=== PATIENT | female | born 1960 | race Caucasian/White ===

== ENCOUNTER 2018-04-23 14:50 | Emergency (ER) | payer OTHER ==
[~2018-04-23] VITALS: Ht 160 cm; Wt 129.3 kg
[2018-04-23 15:27] LABS: HEMATOCRIT 22.7 % (37.0-47.0); HEMOGLOBIN 7.1 gm/dL (12.0-15.0); MCH 20.6 pg (26.0-34.0); MCHC 31.3 g/dL (28.0-37.0); MCV 65.9 fL (80.0-100.0); PLATELET COUNT 528 thou/uL (150-400); RBC 3.44 mil/uL (4.20-5.00); RDW 19.5 % (10.5-14.5); WBC 8.5 thou/uL (4.0-11.0)
[2018-04-23 15:35] LABS: CALCIUM 9.3 mg/dL (8.5-10.1); CREATININE 0.8 mg/dL (0.6-1.0); POTASSIUM 3.7 mmol/L (3.5-5.1)
[2018-04-23 16:13] LABS: PLATELET ESTIMATE INCREASED
[2018-04-23 16:14] LABS: ANISOCYTOSIS 2+; HYPOCHROMASIA 2+; MICROCYTES 2+
[2018-04-23 16:15] LABS: OVALOCYTES OCCASIONAL; POIKILOCYTOSIS SLIGHT
== END 2018-04-24 00:52 | disposition home or self-care (01) ==
LOC: ER 14:50
PROVIDERS: Nurse Practitioner Family
DX: D64.9 Anemia, unspecified (principal); Z88.1 Allergy status to other antibiotic agents; Z88.8 Allergy status to other drugs, medicaments and biological substances